=== PATIENT | male | born 1955 | race Caucasian/White ===

== ENCOUNTER 2024-02-18 13:21 | Inpatient (IN) | payer BC ==
[~2024-02-18] VITALS: Ht 182.9 cm; Wt 117.2 kg
[2024-02-18 14:19] LABS: BASOPHILS ABSOLUTE AUTO 0.01 K/mm3 (0.00-0.23); BASOPHILS PERCENT AUTO 0 % (0-2); EOSINOPHILS ABSOLUTE AUTO 0.11 K/mm3 (0.00-0.68); EOSINOPHILS PERCENT AUTO 1 % (0-6); Hematocrit 28.6 % (37.0-53.0); Hemoglobin 9.7 g/dL (13.5-17.5); IMMATURE GRAN ABSOLUTE AUTO 0.04 K/mm3 (0.00-0.10); IMMATURE GRAN PERCENT AUTO 1 % (0-1); LYMPHOCYTES ABSOLUTE AUTO 0.97 K/mm3 (0.84-5.20); LYMPHOCYTES PERCENT AUTO 12 % (21-46); MONOCYTES ABSOLUTE AUTO 0.46 K/mm3 (0.16-1.47); MONOCYTES PERCENT AUTO 6 % (4-13); Mean Corpuscular HGB Conc 33.9 g/dL (31.5-36.5); Mean Corpuscular Volume 91 fL (80-100); Mean Platelet Volume 11.2 fL (9.1-12.4); NEUTROPHILS ABSOLUTE AUTO 6.73 K/mm3 (1.96-9.15); NEUTROPHILS PERCENT AUTO 81 % (41-73); Platelet Count 131 K/mm3 (150-400); RDW Coefficient Variation 15.3 % (11.7-14.2); RDW Standard Deviation 49.8 fL (35.1-46.3); Red Blood Cell Count 3.13 M/mm3 (4.30-5.90); White Blood Cell Count 8.32 K/mm3 (4.00-11.30)
[2024-02-18 14:24] LABS: Source, Urine Clean Catch
[2024-02-18 14:28] LABS: Appearance, Urine Clear (Clear); Bilirubin, Urine Neg (Neg); Blood, Urine Neg (Neg); Color, Urine Yellow (P-Yellow); Glucose Qualitative, Urine Neg (Neg); Ketones, Urine Neg (Neg); Leukocyte Esterase, Urine 2+ (Neg); Nitrite, Urine Neg (Neg); Protein, Urine Neg (Neg); Specific Gravity, Urine 1.015 (1.003-1.022); Urobilinogen, Urine NORM (Normal)
[2024-02-18 14:34] LABS: Red Blood Cells, Urine 0-2 /hpf (0-2); Squamous Epithelial Cells Not Seen /hpf (Few)
[2024-02-18 14:35] LABS: Bacteria Few /hpf
[2024-02-18 14:39] LABS: Albumin, Blood 3.1 g/dL (3.4-5.0); Albumin/Globulin Ratio 0.6 (0.8-1.8); Bilirubin, Total 0.8 mg/dL (0.1-1.0); Bun/Creatinine Ratio 19.5 (12.0-20.0); Calcium, Blood 9.5 mg/dL (8.5-10.1); Creatinine, Blood 2.93 mg/dL (0.60-1.20); Globulin, Blood 5.1 g/dL (2.2-4.0); Potassium, Blood 3.8 mmol/L (3.5-5.5); Total Protein, Blood 8.2 g/dL (6.4-8.2)
[2024-02-18] MEDS ORDERED: VALSARTAN80 MG PO (20:06)
[2024-02-18] MEDS ORDERED: NS 1,000 ML IV SCH (21:20)
[2024-02-18] MEDS ORDERED: CefTRIAXone Sodium 1,000 MG in NS 100 ML IV ONE (21:25)
[2024-02-18] MEDS ORDERED: Ondansetron HCl 2 MG / ML 2ML Vial IV PRN (23:40)
[2024-02-18] MEDS ORDERED: Acetaminophen 325 MG TABLET PO PRN (23:45)
[2024-02-18] MEDS ORDERED: NS 1,000 ML IV ONE ×2 (23:50)
[2024-02-18 23:56] VITALS: BP 155/86
[2024-02-19] MEDS ORDERED: Insulin Glargine-Yfgn 100 Unit/mL 3 ML SYR SC SCH
[2024-02-19 01:20] LABS: CHOL/HDL RATIO 3.6; Cholesterol 173 mg/dL (50-200); HDL Cholesterol 48 mg/dL (>39); LDL/HDL RATIO 2.2; Low Density Lipoprotein Chol 107 mg/dL (0-110); Triglycerides 90 mg/dL (30-160); Very Low Density Lipoprot Chol 18 mg/dL (6-32)
[2024-02-19 03:24] VITALS: BP 139/83
[2024-02-19 03:30] LABS: BASOPHILS ABSOLUTE AUTO 0.03 K/mm3 (0.00-0.23); BASOPHILS PERCENT AUTO 1 % (0-2); EOSINOPHILS ABSOLUTE AUTO 0.13 K/mm3 (0.00-0.68); EOSINOPHILS PERCENT AUTO 2 % (0-6); Hematocrit 40.1 % (37.0-53.0); Hemoglobin 13.4 g/dL (13.5-17.5); IMMATURE GRAN ABSOLUTE AUTO 0.02 K/mm3 (0.00-0.10); IMMATURE GRAN PERCENT AUTO 0 % (0-1); LYMPHOCYTES PERCENT AUTO 31 % (21-46); MONOCYTES ABSOLUTE AUTO 0.55 K/mm3 (0.16-1.47); MONOCYTES PERCENT AUTO 9 % (4-13); Mean Corpuscular HGB 30.6 pg (26.0-34.0); Mean Corpuscular HGB Conc 33.4 g/dL (31.5-36.5); Mean Corpuscular Volume 92 fL (80-100); Mean Platelet Volume 9.6 fL (9.1-12.4); NEUTROPHILS ABSOLUTE AUTO 3.57 K/mm3 (1.96-9.15); NEUTROPHILS PERCENT AUTO 58 % (41-73); Platelet Count 158 K/mm3 (150-400); RDW Coefficient Variation 12.6 % (11.7-14.2); RDW Standard Deviation 42.3 fL (35.1-46.3); Red Blood Cell Count 4.38 M/mm3 (4.30-5.90)
[2024-02-19 03:54] LABS: Albumin, Blood 3.5 g/dL (3.4-5.0); Albumin/Globulin Ratio 1.2 (0.8-1.8); Bilirubin, Total 0.8 mg/dL (0.1-1.0); Calcium, Blood 8.6 mg/dL (8.5-10.1); Creatinine, Blood 0.95 mg/dL (0.60-1.20); Globulin, Blood 2.9 g/dL (2.2-4.0); Potassium, Blood 3.8 mmol/L (3.5-5.5); Total Protein, Blood 6.4 g/dL (6.4-8.2)
--- NOTE | 2024-02-19 06:41 | NUR ---
SHIFT SUMMARY NOC PT A/O X 4. INDEPENDT/CONTINENT. VSS. PLEASANT AND COOPERATIVE WITH CARE. ADMIT FROM ED WITH ACUTE RENAL FAILURE/ BILATERAL FLANK PAIN, ALONG WITH HYPERGLYCEMIA WITH BLOOD GLUCOSE 455. UPON ADMIT TO FLOOR, BLOOD GLUCOSE CHECKED AND CBG 80 WITH NO INSULING GIVEN EITHER IN ED OR MEDICAL UNIT. PT RECEIVED NS 2L IN ED. SCHEDULED GLARGINE HELD. HOSPITALIST NOTIFIED, AND ORDER GIVEN TO PUT INSULIN ON STANDBY, AM SERUM BLOOD GLUCOSE 119. RENAL FUNCTION HAS RETURNED TO WNL PT HAD ELEVATED BP IN ED, BUT BP HAS REMAINED STABLE SINCE ADMIT TO FLOOR. ON TELE RUNNING SINUS JENNA IN MID 50'S WHILE SLEEPING. PT IS AT BEDSIDE. PT IS FROM [facility] AND CAME UP FOR FAMILY EMERGENCY. A1C ORDERED AND RESULTS ARE PENDING. NS INFUSING @ 100 ML/HR X 1 BAG. PT CURRENTLY RESTING WITH BED IN LOWEST POSITION, AND CALL LIGHT WITHIN REACH.
[2024-02-19] MEDS ORDERED: Insulin Human Lispro 100 Units/ML 3ML Syringe SC SCH (07:30)
[2024-02-19 07:55] VITALS: BP 138/88
[2024-02-19] MEDS ORDERED: Enoxaparin 40 MG/0.4 ML SYR SC SCH (09:00)
[2024-02-19] MEDS ORDERED: CIPR500 PO (13:29)
[2024-02-19] MEDS ORDERED: MASOPHEN325 M4 PO (13:29)
[2024-02-19] MEDS ORDERED: VISBIOME 112.51 EACH PO (13:30)
--- NOTE | 2024-02-19 14:05 | NUR ---
DISCHARGE SUMMARY PT DC THIS SHIFT. DC INSTRUCTION GONE OVER WITH PT AND PT SPOUSE WHOM BOTH STATE UNDERSTANDING. PT AMBULATED OFF FLOOR WITH SPOUSE AND REFUSED HELP. MEDICATION FAXED TO [facility].
[2024-02-19] MEDS ORDERED: CefTRIAXone Sodium 1,000 MG in NS 100 ML IV SCH (15:00)
== END 2024-02-19 14:00 | disposition home or self-care (01) | DRG 683 ==
LOC: ER 13:21 → MEDS 21:55 → ERHOLD 21:55 → MEDS 23:52
PROVIDERS: Physician Assistant; ADMIT Internal Medicine
DX: N17.9 Acute kidney failure, unspecified (principal); K65.4 Sclerosing mesenteritis; N39.0 Urinary tract infection, site not specified; R73.9 Hyperglycemia, unspecified; I10 Essential (primary) hypertension; K42.9 Umbilical hernia without obstruction or gangrene; Z79.899 Other long term (current) drug therapy
CPT/HCPCS: 36415; 74176; 80053; 80061; 81001; 82947; 83036; 83690; 83880; 85025; 87077; 87086; 87186; 96374; 99285-25; A9270; J0696; J1815; J7030